=== PATIENT | female | born 1955 | race Caucasian/White ===

== ENCOUNTER → 2018-04-11 10:10 | Oncology outpatient (ONC) | payer OTHER, MEDICAID, SELFPAY ==
[2018-04-11] MEDS: ACETAMINOPHEN 325 MG TABLET 650 MG PO (12:20)
[2018-04-11] MEDS: diphenhydrAMINE 25 MG TABLET PO (12:20)
[2018-04-11 12:39] VITALS: BP 113/61; PULSE 91; RESP 18; TEMP 36.8
[2018-04-11 13:00] VITALS: BP 109/65; BP 118/61; PULSE 86; PULSE 91; RESP 16; RESP 18; TEMP 36.8; TEMP 37.3
[2018-04-11 15:12] VITALS: BP 109/65; PULSE 86; RESP 16; TEMP 36.8
[2018-04-11 15:35] VITALS: BP 110/52; PULSE 85; RESP 18; TEMP 36.8
--- NOTE | 2018-04-11 17:04 | PC.NURSE ---
Walked with patient to Acute Care Room 203 while RBC transfusion running via Right AC IV, unit #2/2 ordered. Patient slightly short of breath with exertion, but able to complete the walk while talking. Report given to JANETTE Artis and paperwork printed out in case of any questions. Patient has new patient appointment with Dr. Crowder on [facility] on Saturday to transfer care for the time being.
[2018-04-11 17:35] VITALS: BP 132/86; PULSE 72; RESP 20; TEMP 37.1
--- NOTE | 2018-04-11 17:57 | PC.NURSE ---
TRANSFUSION Received pt at approximately 1645 with outpt onc. RN with 2nd unit PRBCs transfusing. transfusion completed at approximately 1735. pt without any adverse reactions. pt taken off unit via wheelchair at 1745 with RN escort.
--- NOTE | 2018-05-16 11:27 | ONC.NAV ---
Description: T/C to pt's friendJauni Activity: Received a call from pt's cg/friend/DPOAJuani, who was very distraught re: the circumstances leading up to pt's last week. She reported several instances where it seemed zytwneik-ud-xnbmcnae communication did not seem to be happening, difficulty with [facility] obtaining her records from , and pt's expressed resignation at the end, feeling she was without an oncologist who knew her and her plan of care/needs. This COUNTER STITCHER listened and provided emotional and grief support. Agreed on a plan for this COUNTER STITCHER to do a quality report in order to determine if there are things that perhaps could have been done to alleviate the sense of trauma that she feels pt experienced at the end of her life. Plan: COUNTER STITCHER will complete a QMM.
== END ==
LOC: ONC 10:12
PROVIDERS: PCP Family Medicine; Visit Provider Internal Medicine Hematology & Oncology
DX: C50.919 Malignant neoplasm of unspecified site of unspecified female breast (principal); D64.9 Anemia, unspecified
CPT/HCPCS: 36430; 36591; 86850; 86900; 86901; P9016

== ENCOUNTER → 2018-04-24 14:35 | Outpatient (REF) | payer OTHER, MEDICAID, SELFPAY | LOC: LAB 14:35 | PROVIDERS: PCP Family Medicine; Visit Provider Specialist | DX: C50.919 Malignant neoplasm of unspecified site of unspecified female breast (principal); Z53.9 Procedure and treatment not carried out, unspecified reason ==